=== PATIENT | male | born 1965 | race Caucasian/White ===

== ENCOUNTER → 2017-02-11 | Outpatient (REF) ==
--- NOTE | 2017-02-11 13:56 | DI ---
EXAM: Two views of the chest. History: Annual screening employment chest radiograph Comparison: Chest radiograph 02/16/2014 Findings: Heart size is normal. No focal consolidation. No appreciable pleural fluid and no pneum othorax. No acute osseous abnormalities. Impression: No acute cardiopulmonary process.
== END ==
LOC: RAD 13:39
DX: Z02.89 Encounter for other administrative examinations (principal)

== ENCOUNTER 2017-05-13 14:42 | Outpatient (CLI) ==
--- NOTE | 2017-05-13 15:34 | DI ---
EXAM: Chest two view, frontal and lateral views. HISTORY: Chest pain. COMPARISON: 02/11/2017. FINDINGS: The heart size is normal. There is no pulmonary vascular congestion. The lungs are clear . No pleural effusion or pneumothorax is seen. No acute osseous abnormality identified. Since the prior study, there has been no significant interval change. IMPRESSION: No acute cardiopulmonary process.
--- NOTE | 2017-05-13 15:35 | DI ---
EXAM: Thoracic spine three view HISTORY: Pain COMPARISON: 06/02/2010 TECHNIQUE: Three views thoracic spine were performed FINDINGS: Vertebral bodies normal height. No fracture. No subluxation. Mild multilevel chronic di scogenic degenerative disease with multilevel intervertebral disc space narrowing and marginal osteop hyte formation. IMPRESSION: Mild chronic discogenic degenerative disease.
--- NOTE | 2017-05-13 15:36 | DI ---
Exam: Five x-rays of the lumbar spine. Comparison: None available. Reason for exam: Pain. FINDINGS: No acute fracture or listhesis. The vertebral body and intervertebral body disc space hei ghts are relatively well maintained. There is a normal appearing lumbar lordotic curve. Mild degene rative disease is seen with osteophyte formation. Impression: No acute fracture or listhesis in the lumbar spine
== END 2017-05-13 14:43 | disposition home or self-care (01) ==
LOC: RAD 14:42
PROVIDERS: ATTEND Family Medicine
DX: M54.6 Pain in thoracic spine (principal); M54.5 Low back pain; R07.9 Chest pain, unspecified

== ENCOUNTER 2018-10-04 10:04 | Emergency (ER) ==
[2018-10-04 10:13] VITALS: BP 163/97; TEMP 97.6; BMI 28.6
[2018-10-04] MEDS ORDERED: TORADOL IM STA (10:34)
--- NOTE | 2018-10-04 11:19 | DI ---
EXAM: Left great toe three views HISTORY: Blunt trauma FINDINGS: Lateral projection reveals possible tiny, nondisplaced tuft fracture of the distal phalanx . The bone joint structures were otherwise unremarkable. Joints are intact. Soft tissues within no rmal limits. IMPRESSION: 1. Possible tiny distal phalangeal tuft fracture.
--- NOTE | 2018-10-04 11:37 | ED.PDOC ---
General ED Provider: Dr. STEPHANIE BROWN Chief Complaint: Foot Pain/Injury Stated Complaint: Lt Great Toe Injury, Swelling from blunt trauma. States he dropped timber onto left great toe last pm. The toe currently is throbbing and discolored--nail is trying to come off--able to bear weight but limited. Toe discolored and nail plate partially avulsed. Blood retained under nail plate and surrounding tissue Time Seen by Physician: 10:30 Mode of Arrival: Walk-In Information Source: Patient Exam Limitations: No limitations Primary Care Provider: STEPHANIE HOFFMAN Nursing and Triage Documentation Reviewed and Agree: Yes Does patient meet sepsis criteria?: No System Inflammatory Response Syndrome: Not Applicable Sepsis Protocol: For patient's 13 years and over: Temp is 96.8 and below OR 101 and greater Pulse >90 BPM Resp >20/minute Acutely Altered Mental Status Are patient's symptoms suggestive of a new infection, such as: -Pneumonia -Skin, Soft Tissue -Endocarditis -UTI -Bone, Joint Infection -Implantable Device -Acute Abdominal Infection -Wound Infection -Meningitis -Blood Stream Catheter Infection -Unknown Musculoskeletal Complaint Exam - Ankle/Foot Complaint/Exam Location of Injury: Reports: Left, Toe #1 Mechanism of Injury: Reports: Trauma Onset/Duration: last evening Symptoms Are: Reports: Worse Onset of Pain: Reports: Immediate Initial Severity: Severe Current Severity: Moderate Location: Reports: Discrete Character: Reports: Dull, Aching, Throbbing Alleviating: Reports: Rest Aggravating: Reports: Movement, Weight bearing Able to Bear Weight: Yes Associated Signs and Symptoms: Reports: Swelling, Bruising Related History: Denies: Similar episode Gout Risk Factors: Reports: None Related Surgical History: Reports: None Lower Extremity Findings: Present: Swelling (distal phalynx Lt great toe with spontaneous nail partial avulsion ), Tenderness Tenderness: Present: Digits (Great toe lt foot) Differential Diagnosis: Contusion, Closed Fracture Review of Systems - Review Of Systems Constitutional: Reports: No symptoms Eyes: Reports: No symptoms Ears, Nose, Mouth, Throat: Reports: No symptoms Respiratory: Reports: No symptoms Cardiac: Reports: No symptoms GI: Reports: No symptoms : Reports: No symptoms Musculoskeletal: Reports: No symptoms, Joint pain, Joint swelling (great toe lt foot-discolored and ecchymotic) Skin: Reports: No symptoms Neurological: Reports: No symptoms Endocrine: Reports: No symptoms Hematologic/Lymphatic: Reports: No symptoms All Other Systems: Reviewed and Negative Past Medical History - Past Medical History Previously Healthy: Yes Endocrine: Reports: None Cardiovascular: Reports: None Respiratory: Reports: None Hematological: Reports: None Gastrointestinal: Reports: None Genitourinary: Reports: None Neuro/Psych: Reports: None Musculoskeletal: Reports: None Cancer: Reports: None - Surgical History General Surgical History: Reports: None - Family History Family History: Reports: None - Social History Smoking Status: Never smoker Hx Substance Use: No Alcohol Screening: Occasionally - Immunizations Tetanus Shot up to Date: (unknown) Physical Exam - Physical Exam Appearance: Well-appearing, No pain distress, Well-nourished Eyes: NUBIA, EOMI, Conjunctiva clear ENT: Ears normal, Nose normal, Oropharynx normal Respiratory: Airway patent, Breath sounds clear, Breath sounds equal, Respirations nonlabored Cardiovascular: RRR, Pulses normal, No rub, No murmur GI/: Soft, Nontender, No masses, Bowel sounds normal, No Organomegaly Musculoskeletal: Normal strength, ROM intact, No edema, No calf tenderness Skin: Warm, Dry, Normal color Neurological: Sensation intact, Motor intact, Reflexes intact, Cranial nerves intact, Alert, Oriented Psychiatric: Affect appropriate, Mood appropriate Interpretation - Radiology Interpretation Radiology Interpretation By: Radiologist Radiology Results: Positive Exam Interpreted: Other (Lt great toe. slight distal tuft fracture) Procedures - Nail Trepanation Nail Trepanation Location: LT Great Toe Method of Drainage: Nail cauterized, Other (Incision proximal membrane adjacent to partially avulsed nail plate) Sterile Dressing Applied: Yes Critical Care Note - Critical Care Note Total Time (mins): 60 Course - Course Orders, Labs, Meds: Orders Category Date Time Status Ketorolac Tromethamine [Toradol] MEDS 10/04/18 10:34 Discontinued 30 mg IM ONCE STA TOE(S), LEFT MIN 2V Stat RADS 10/04/18 10:33 Completed Medications Discontinued Medications Generic Name Dose Route Start Last Admin Trade Name Freq PRN Reason Stop Dose Admin Ketorolac Tromethamine 30 mg 10/04/18 10:34 10/04/18 10:51 Toradol IM 10/04/18 10:35 30 mg ONCE STA Administration Vital Signs: Temp Pulse Resp BP Pulse Ox 10/04/18 10:05 97.6 F 88 16 163/97 H 99 Departure - Departure Time of Disposition: 12:25 Disposition: HOME SELF-CARE Discharge Problem: Great toe pain, Fractured great toe, Subungual hematoma of great toe of left foot Instructions: Toe Fracture (ED) Condition: Good Pt referred to PMD for follow-up: Yes (Dr Hoffman in 4-5 days) IPMP verified?: No Additional Instructions: Dressing to great toe Foot soaks as directed for 20-30 minutes in warm water and epsom salts Antibiotics and pain meds as directed Follow up PCP in 3-5 days Prescriptions: Hydrocodone Bit/Acetaminophen [[place] 7.5-325] 1 each PO Q6HR PRN #15 tablet PRN Reason: Great Toe Pain Cephalexin [Keflex] 500 mg PO BID #14 capsule Allergies/Adverse Reactions: Allergies Penicillins Adverse Reaction (Verified 10/04/18 10:15) Home Medications: Ambulatory Orders Cephalexin [Keflex] 500 mg PO BID #14 capsule 10/04/18 Cyanocobalamin (Vitamin B-12) [Vitamin B-12] 1,000 mcg PO DAILY 10/04/18 Hydrocodone Bit/Acetaminophen [[place] 7.5-325] 1 each PO Q6HR PRN #15 tablet 12/18 Lisinopril/Hydrochlorothiazide [Zestoretic 20-12.5 mg Tablet] 1 each PO DAILY Multivitamin [Multi-Vitamin Daily] 1 each PO DAILY 10/04/18 Tamsulosin HCl [Flomax] 0.4 mg PO DAILY 10/04/18 Disposition Discussed With: Patient
== END 2018-10-04 12:58 | disposition home or self-care (01) ==
LOC: ED 10:04
DX: S90.212A Contusion of left great toe with damage to nail, initial encounter (principal); S92.425A Nondisplaced fracture of distal phalanx of left great toe, initial encounter for closed fracture; W22.8XXA Striking against or struck by other objects, initial encounter
CPT/HCPCS: 96372; 99283